=== PATIENT | male | born 2005 | race Caucasian/White ===

== ENCOUNTER 2025-08-19 13:46 | Emergency (ER) | payer OTHER, SELFPAY ==
[2025-08-19 13:58] VITALS: BP 137/77; PULSE 88; RESP 18; TEMP 38.7; O2SAT 96; BMI 25.1
[2025-08-19 14:00] VITALS: PULSE 68; RESP 14; O2SAT 99
--- NOTE | 2025-08-19 14:13 | CRLHL7_ITS ---
For Patients: As a result of the Century Cures Act, medical imaging exams and procedure reports are released immediately into your electronic medical record. You may view this report before your referring provider. If you have questions, please contact your health care provider. Indication: Sore throat. Technique: CT soft tissue neck with IV contrast was acquired from the skullbase to the thoracic inlet. No comparisons. Findings: Visualized posterior fossa structures are within normal limits. The thyroid, submandibular and parotid glands are within normal limits. The cervical airway is widely patent. Vallecula and piriform sinuses are within normal limits. Visualized pulmonary apices are grossly unremarkable. Enlarged bilateral level 1 and level 2 lymph nodes are likely reactive in nature. The palatine tonsils are diffusely enlarged. There is a vague 1 cm region of decreased attenuation within the anterior aspect of the left palatine tonsil that does not demonstrate a enhancing rind and may represent a developing phlegmon. No suspicious fluid collections. No convincing evidence of suspicious enhancing masses seen within the soft tissues of the neck. Impression: 1. Enlarged bilateral tonsils likely reactive in nature. Vague region of decreased attenuation along the anterior margin of the left tonsil may represent a developing phlegmon. 2. Enlarged bilateral level 1 and level 2 lymph nodes are likely reactive in nature. 3. No radiographic evidence of peripherally enhancing fluid collections. Please note that all CT scans at this facility use dose modulation, iterative reconstruction, and/or weight-based dosing when appropriate to reduce radiation dose to as low as reasonably achievable. Dictated by Eric Eaton MD @ 08/19/2025 2:48:15 PM (Electronically Signed)
--- NOTE | 2025-08-19 14:15 | ED.GENADULT ---
HPI - General Adult General Chief complaint: Sore Throat Stated complaint: swollen tonsils/ abscess Time Seen by Provider: 08/19/25 14:08 History of Present Illness HPI narrative: This 20-year-old male comes in reporting sore throat and fever that began yesterday. He went to urgent care and was sent here because the possibility of an abscess. He does have a muffled voice but does not have any trismus. He arrives here with a temperature at 101.7? F. the temperature measured at urgent care was about a degree higher than this. He states that he is otherwise in good health. Related Data Previous Rx's ?Medication ?Instructions ?Recorded amoxicillin 875 mg-potassium 1 tab PO BID #14 tabs 08/19/25 clavulanate 125 mg tablet ketorolac 10 mg tablet 10 mg PO TID 5 days #15 tabs 08/19/25 methylprednisolone 4 mg tablets in See Rx Instructions PO .COMPLEX 08/19/25 a dose pack (Medrol (Mundo)) #21 ea Allergies Allergy/AdvReac Type Severity Reaction Status Date / Time No Known Drug Allergies Allergy Verified 08/19/25 14:42 Review of Systems Status of ROS: Reports: 10 or more systems reviewed and unremarkable except as noted in History and below Narrative: Constitutional: No weight gain or loss. He reports a fever. Eyes: No discharge. No vision changes. HENT: No congestion, no ear pain. Sore throat as described above. Cardiovascular: No chest pain, no palpitations. Respiratory: No shortness of breath, no wheezes, no cough. Gastrointestinal: No abdominal pain, no vomiting, no diarrhea. Genitourinary: No dysuria, no hematuria. Musculoskeletal: Normal range of motion. Skin: No rashes, no pruritis. Neurological: No dizziness, weakness, sensory change, speech change. Endo/Heme/Allergies: No bruising or bleeding. No polydipsia. Pysch: no suicidality, no anxiety, no insomnia. All other systems reviewed and are negative. PFSH PFS Social History Smoking Status: Never smoker How often do you have a drink containing alcohol: never AUDIT-C Alcohol total score: 0 Non-prescribed substance use: denies use Exam Narrative: Exam Narrative: Constitutional: Well-developed, well-nourished, no acute distress. HEENT: Normocephalic, atraumatic. Oropharynx shows a large left tonsil which abuts up to the uvula. He has a muffled voice. No trismus. Neck: Normal range of motion. Nontender. Supple. Heart: Intact distal pulses. Lungs: No chest discomfort. No wheezes, rhonchi, or rales. Abdomen: Nontender. Back: Normal range of motion. Extremities: Normal range of motion. No injury. Skin: Intact. No rash. Warm. No erythema or pallor. Neurologic: No altered sensation. No weakness. Alert and oriented. Psychiatric: No suicidality. No anxiety or depression. No insomnia. Nursing notes and vitals signs are reviewed. Const: Vital Signs, click to edit/add: Vital Signs - 24 hr 08/19/25 13:58 Temperature 101.7 F H Pulse Rate [Pulse Oximeter] 88 Respiratory Rate 18 Blood Pressure [Ri ght Upper Arm] 137/77 Pulse Oximetry 96 Oxygen Delivery Me thod Room Air Course Vital Signs Vital signs: Initial Vital Signs Temperature 101.7 F H 08/19/25 13:58 Temperature Source Temporal Artery Scan 08/19/25 13:58 Pulse Rate 88 08/19/25 13:58 Pulse Rhythm Regular 08/19/25 13:58 Respiratory Rate 18 08/19/25 13:58 Blood Pressure 137/77 08/19/25 13:58 Blood Pressure Mean 97 08/19/25 13:58 Blood Pressure Position Sitting 08/19/25 13:58 Pulse Oximetry 96 08/19/25 13:58 Oxygen Delivery Method Room Air 08/19/25 13:58 Vital Signs Temperature 101.7 F H 08/19/25 13:58 Pulse Rate 88 08/19/25 13:58 Respiratory Rate 18 08/19/25 13:58 Blood Pressure 137/77 08/19/25 13:58 Pulse Oximetry 96 08/19/25 13:58 Oxygen Delivery Method Room Air 08/19/25 13:58 Temperature 101.7 F H 08/19/25 13:58 Pulse Rate 88 08/19/25 13:58 Respiratory Rate 18 08/19/25 13:58 Blood Pressure 137/77 08/19/25 13:58 Pulse Oximetry 96 08/19/25 13:58 Oxygen Delivery Method Room Air 08/19/25 13:58 Medical Decision Making MDM Narrative Medical decision making narrative: This patient comes in with sore throat, fever, and muffled voice. There is suspicion for a tonsillar abscess. An IV was established and labs are acquired. CT imaging with IV contrast is obtained of the soft tissue of the neck. This shows no evidence of abscess but certainly a reactive tonsil. Labs returned with elevated white count at 16,000. Other lab results are reassuring and normal including negative strep test, mononucleosis test, and viruses tested. The patient did receive an IV dose of Solu-Medrol and received prescriptions for Augmentin, Medrol Dosepak, and Toradol. I describe signs and symptoms that would indicate a need for return and re-evaluation. Lab Data Labs: Lab Results 08/19/25 08/19/25 Range/Units 14:04 14:23 WBC 16.05 H (4.50-11.00) K/uL RBC 4.84 (4.30-5.90) m/uL Hgb 14.4 (13.5-17.5) gm/dL Hct 42.1 (37.0-53.0) % MCV 87 (80-100) fL MCH 30 (26-34) pg MCHC 34 (32-36) gm/dL RDW Coeff of Valdemar 12.0 (11.5-15.5) % Plt Count 183 (140-440) K/uL Neut % (Auto) 71.7 (42.0-72.0) % Lymph % (Auto) 21.2 (20-44) % Coal % (Auto) 6.7 (0.0-11.0) % Eos % (Auto) 0.0 (0.0-7.0) % Baso % (Auto) 0.2 (0.0-3.0) % Neut # (Auto) 11.50 H (1.7-7.0) K/uL Lymph # (Auto) 3.40 H (0.90-2.90) K/uL Coal # (Auto) 1.10 H (0.00-0.90) K/UL Eos # (Auto) 0.00 (0.00-0.50) K/uL Baso # (Auto) 0.00 (0.00-0.30) K/uL Abs Immat Gran (auto) 0.00 (0.00-0.30) K/uL Imm/Tot Granulo (auto) 0.2 % SARS-CoV-2 (PCR) Negative SARS-CoV-2 (Negative) Monoscreen Negative (Negative) Influenza Type A (PCR) Negative PCR FLU A (Negative) Influenza Type B (PCR) Negative PCR FLU B (Negative) RSV (PCR) Negative PCR RSV (Negative) Group A Strep DNA NOT DETECTED (Not Detectd) Imaging Data CT Soft Tissue Neck: Radiologist's impression: 1. Enlarged bilateral tonsils likely reactive in nature. Vague region of decreased attenuation along the anterior margin of the left tonsil may represent a developing phlegmon. 2. Enlarged bilateral level 1 and level 2 lymph nodes are likely reactive in nature. 3. No radiographic evidence of peripherally enhancing fluid collections. Discharge Plan Discharge Clinical Impression: Acute tonsillitis Patient Disposition: Home, Self-Care Condition: Improved Additional Instructions: Take medications as prescribed. Follow up with MD as needed or return if not improving or worsening. Prescriptions: New ketorolac 10 mg tablet 10 mg PO TID 5 Days Qty: 15 0RF methylprednisolone [Medrol (Mundo)] 4 mg tablets,dose pack See Rx Instructions .ROUTE .COMPLEX Qty: 21 0RF Rx Instructions: orally per package directions amoxicillin-pot clavulanate 875-125 mg tablet 1 tab PO BID Qty: 14 0RF Follow Up/Referrals: Provider,Not a Local [Primary Care Provider, Family Practice] Stand Alone Forms: MyHealth Info Instructions
[2025-08-19 14:30] VITALS: O2SAT 97
[2025-08-19 14:33] LABS: Hematocrit* 42.1 % (37.0-53.0); Hemoglobin* 14.4 gm/dL (13.5-17.5); Immature Granulocytes Pct Auto 0.2 %; Lymphocytes Absolute Auto 3.40 K/uL (0.90-2.90); Mean Corpuscular HGB Conc 34 gm/dL (32-36); Mean Corpuscular Hemoglobin 30 pg (26-34); Mean Corpuscular Volume 87 fL (80-100); RDW Coefficient of Variation % 12.0 % (11.5-15.5); Red Blood Count* 4.84 m/uL (4.30-5.90); White Blood Count* 16.05 K/uL (4.50-11.00)
[2025-08-19 14:39] LABS: Strep A DNA Probe* NOT DETECTED (Not Detectd)
[2025-08-19 14:49] LABS: Immature Granulocytes Abs Auto 0.00 K/uL (0.00-0.30); Slide Review Reflex Yes
[2025-08-19 14:51] LABS: PCR FLU A Negative PCR FLU A (Negative); PCR FLU B Negative PCR FLU B (Negative); PCR RSV Negative PCR RSV (Negative); SARS PCR* Negative SARS-CoV-2 (Negative)
[2025-08-19 14:56] LABS: Mono Screen* Negative (Negative)
[2025-08-19 15:00] VITALS: PULSE 62; RESP 14; O2SAT 97
--- OUTSIDE RECORDS SUMMARY | 2025-08-19 15:04 | XMS_ITS | Clinical Summary ---
Author Organization [facility] Address [address] [place] [address] Care Team Providers Care Food Mixer Repairer Name Role Phone Lisa Mauro M.D., M.P.H. Primary Care Pro vider Source Comments Patient records contain information from all sites at [facility]. For routine questions regarding patient records, call [phone] during business hours, M-F 8:00 AM - 5:00 PM Central Time. Record requests for emergency care only can be directed to [phone] at any time.[facility] Allergies No known active allergies Medications acetaminophen (for_TYLENOL) 325 mg tablet Take 1-2 tablets by mouth. Pain 04/14/2017 Active ibuprofen (for_ADVIL,MOTR IN) 200 mg tablet Take 1 tablet by mouth every 6 (six) hours as needed. 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 No history of trauma. Discussed the importance of monitoring for changes, as alterations could indicate potential issues such as melanoma due to sun exposure. - Monitor for changes in the iris defect. Family History Cardiovascular Disease 03/22/2024 Concussion Loss Of Conscious ness Less Than 30 Minute Subsequent 07/28/2022 Overview (07/28/2022): 07/28/22: - first age 8, fully resolved - 07/26--hit during football game. LOC 2-3 sec, seen in ER, nausea/ mild FRANCO--improving. Sensitive to light and soundsbut that is improving Assessment & Plan (03/24/2025 2:07 PM CDT): Concussion Concussion with the last incident in July 2022 due to a head-on collision during football. No sequelae reported, including no persistent headaches, vision changes, or cognitive difficulties. Assessment & Plan (07/28/2022 8:24 AM CDT): ASSESSMENT/ PLAN: - improving, mild concussion - is going to follow with business trainer; will take 2 weeks off sports - discussed prevention. Helmet for all appropriate activities in future Examination Well Bridge Club Manager Multisystem 29 Day To 17 Year Normal 05/13/2018 Immunizations Immunization Administration Dates Next Due 9vHPV 2020,06/12/2017 DTaP (Daptacel) 07/01/2010 DTaP / Hib 10/07/2006 DTaP, Unspecified 2005,2005,09/01/20 05 HepA Pediatric/Adolescent 08/02/2007,07/21/2006 HepB Pediatric/Adolescent 2005,2005 Hib (PRP-T) (ACTHIB, HIBERIX) 2005 Hib-HepB 2005 IPV 07/01/2010, 6,2005,2004 Influenza, Seasonal, Injectable 08/02/2007,10/07,09/08/2006 MCV4 (Menactra)(Discontinued) 05/13/2018 MENACWY-TT (MENQUADFI)(MCV4) 07/28/2022 MMR 07/01/2010 MMRV 07/21/2006 PCV7 (discontinued) 10/07/2006, 6,2005,2004 SARS-COV-2 (COVID-19) - MODE RNA (12 YEARS AND OLDER) Fall Seasonal 09/17/2023 SARS-COV-2 (COVID-19) - PFIZ ER (Discontinued)(12 years or older) 03/19/2021,02/26/2021 Tdap 05/13/2018 JEFF 07/01/2010,07/21/2006 influenza LAIV (Nasal) (2 ye ars through 49 years) 08/26/2014 influenza trivalent LAIV (Na miguelina) (2 years through 49 years) 08/06/2011,07/10/2009,08/14/2008 influenza trivalent vaccine (6 months and older)(PF) 08/19/2012 influenza vaccine quad (FLUZONE/FLUARIX) (6 months and older)(PF) 09/17/2023,07/28/2022,08/06/2013 Family History Medical History Relation Name Comments Coronary artery disease Father tatyana saez Depression Father tatyana saez bipolar level 2 Anxiety disorder Mother everett saez Depression Mother everett saez Migraines Mother everett saez Sleep apnea Mother everett saez currently reciv ing treatment (CPAP) Coronary artery disease Paternal Grandfather vickie rouse gregor Diabetes Paternal Grandfather vickie saez Anxiety disorder Sister Ashley Relation Name Status Comments Father tatyana saez Mother everett saez Paternal Grandfather vickie saez Sister Ashley Alive Social History Tobacco Use Types Packs/Day Years Used Date Smoking Tobacco: Never Smokeless Tobacco: Never Alcohol Use Standard Drinks/Week Comments Not Currently 0 (1 standard drink = 0.6 oz pure alcohol) Have had a few drinks in the past in family settings [facility] Utilities Answer Date Recorded In the past 12 months has th e [employer], gas, oil, or water [employer] threatened to shut off services in your home? No 03/19/2024 Hunger Vital Sign Answer Date Recorded Within the past 12 months, y ou worried that your food would run out before you got the money to buy more. Never true 03/19/20 24 Within the past 12 months, t he food you bought just didn't last and you didn't have money to get more. Never true 03/19/2024 PRAPARE - Transportation Answer Date Re corded In the past 12 months, has l ack of transportation kept you from medical appointments or from getting medications? No 03/05 In the past 12 months, has l ack of transportation kept you from meetings, work, or from getting things needed for daily living? No 03/19/2024 Depression Answer Date Recor ded PHQ-9-M Total Score (5-9=Mil d, 10-14=Moderate, 15-19=Moderately Severe, 20-27=Severe) 0 04/14/2023 Safety and Environment Answer Date Tho rded Are there any guns kept in or around your home? No 07/28/2022 Gun Storage Not on file 07/28/2022 Child Education Answer Date Recorded Radar Scientist Education Not on file 2021 Are you/your child doing well enough in school? Yes 07/28/2022 Do you/your child have what you need to learn? (i.e. school supplies, access to internet, laptop at home, IEP) Yes Read to Child Not on file 07/28/2022 Adolescent Education Answer Date Record ed Are you/your child doing well enough in school? Yes 07/28/2022 Do you/your child have what you need to learn? (i.e. school supplies, access to internet, laptop at home, IEP) Yes Housing Stability Answer Date Recorded What is your living situation today? I have a 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 Gender Identity Male 03/11/2024 11:44 AM CDT Sexual Orientation Not on file Last Filed Vital Signs Vital Sign Reading Time Taken Comments Blood Pressure 126/79 03/24/2025 1:28 PM CDT Pulse 98 03/24/2025 1:28 PM CDT Temperature 36.8 C (98.2 F) 07/26/2022 10:49 AM CDT Respiratory Rate 16 07/26/2022 10:49 AM CDT Oxygen Saturation 100% 07/26/2022 10:49 AM CDT Inhaled Oxygen Concentration - - Weight 88 kg (194 lb 0.1 oz) 03/24/2025 1:28 PM CDT Height 185.4 cm (6' 0.99) 03/24/2025 1:28 PM CD T Body Mass Index 25.6 03/24/2025 1:28 PM CDT Plan of Treatment Health Maintenance Due Date Last Done Comments Hearing Screening during Well Child Visit 2005 Hepatitis C Screening 2005 1 week Well Child Check-Up 2005 1 month Well Child Check-Up 2005 2 month Well Child Check-Up 2005 4 month Well Child Check-Up 2005 9 month Well Child Check-Up 02/24/2006 15 month Well Child Check-Up 08/27/2006 18 month Well Child Check-Up 11/27/2006 2 year Well Child Check-Up 05/27/2007 30 month Well Child Check-Up 11/27/2007 3 year Well Child Check-Up 05/27/2008 5 year Well Child Check-Up 05/27/2010 6 year Well Child Check-Up 05/27/2011 7 year Well Child Check-Up 05/27/2012 8 year Well Child Check-Up 05/27/2013 10 year Well Child Check-Up 05/27/2015 13 year Well Child Check-Up 05/27/2018 14 year Well Child Check-Up 05/27/2019 16 year Well Child Check-Up 06/23/2021 Vision Screening during Well Child Visit 2024 2020, 09/07/2013 20 year Well Child Check-Up 05/27/2025 COVID-19 Vaccine (2024- season) 2025 09/17/2023, 03/19/2021, 02/26/2021 Influenza Vaccine (#1) 2025 , 07/28/2022, 08/26/2014, Additional history exists TB Screening during Well Child Visit 03/20/2026 03/20/2025 Lipid (Cholesterol) Screening 03/22/2027 03/22/2024 DTaP,Tdap,and Td Vaccines (7 - Td or Tdap) 05/13/2028 05/13/2018, 07/01/2010, 10/07/2006, Additional history exists Hepatitis B Vaccines Completed 2005, 2005, 2005 Pneumococcal vaccine (0-49 years) Aged Out 10/07/2006, 2005, 2005, Additional history exists No longer eligible based on patient's age to complete this topic IPV Vaccines Completed 07/01/2010, 06/2 12/2005, 2005, Additional history exists Varicella Vaccines Completed 07/01/2010, 1 , 07/21/2006 12 year Well Child Check-Up Completed 05/13/2018 15 year Well Child Check-Up Completed 2020 HPV Vaccines Completed 2020, 06/12/2017 17 year Well Child Check-Up Completed 07/28/2022 Meningococcal Vaccine Completed 07/28/2022, 018 18 year Well Child Check-Up Completed 03/22/2024 19 year Well Child Check-Up Completed 03/24/2025 Depression Screening (Annual PHQ-2) Completed 03/24/2025, 03/20/2025 Well Child Check-Up (WCC) Completed Well Child Check-Up Completed in Past Year Completed 03/24/2025 Procedures Procedure Name Priority Date/Time Associated Diagnosis Comments LIPID PANEL, S Routine 03/22/2024 1:28 PM CDT Family History Cardiovascular Disease from Last 3 Months or Most Recently Relevant to Health Maintenance Results * Lipid Panel (03/22/2024 1:28 PM CDT) Triglycerides 40 mg/dL 03/22/2024 2:35 PM CDT DTL Comment: ----REFERENCE VALUE---- Normal: <150 mg/dL Borderline High: 150-199 mg/dL High: 200-499 mg/dL Very High: > or =500 mg/dL Cholesterol, Total 132 mg/dL 2023 2:35 PM CDT DTL Comment: ----REFERENCE VALUE---- Desirable: < 200 mg/dL Borderline High: 200 - 239 mg/dL High: > or = 240 mg/dL Cholesterol, LDL, Calculated 77 mg/dL 03/22/2024 2:35 PM CDT DTL Comment: ----REFERENCE VALUE---- Desirable: <100 mg/dL Above Desirable: 100-129 mg/dL Borderline High: 130-159 mg/dL High: 160-189 mg/dL Very High: >=190 mg/dL ----ADDITIONAL INFORMATION---- LDL cholesterol calculated using the Kumar/NIH equation. Cholesterol, HDL, S 45 >=40 mg/dL 03/22/2024 2:35 PM CDT DTL Cholesterol, Non-HDL, Calculated 87 mg/dL 03/22/2024 2:35 PM CDT DTL Comment: ----REFERENCE VALUE---- Desirable: <130 mg/dL Above Desirable: 130-159 mg/dL Borderline High: 160-189 mg/dL High: 190-219 mg/dL Very High: > or =220 mg/dL Fasting (8 HR or more) No 03/22/2024 1:28 PM CDT DTL Blood (Blood, Venous) 03/22/2024 1:28 PM CDT 03/22/2024 2:09 PM CDT Kleber Thomas M.D., M.S. LAB BLOOD ADD-ON Fi nal Result [facility] [address] [place] [address], [facility] [address] [place] [address] from Last 3 Months or Most Recently Relevant to Health Maintenance Insurance [employer] Care Teams Food Mixer Repairer Relationship Specialty Start Date End Date Lisa Mauro M.D., M.P.H. [address] [place] [phone] PCP - General 05/08/23
--- OUTSIDE RECORDS SUMMARY | 2025-08-19 15:05 | XMS_ITS | Encounter Summary ---
Author Organization [facility] Address [address] [place] [address] Care Team Providers Care Criminal Defense Lawyer Name Role Phone Lisa Mauro M.D., M.P.H. Primary Care Pro vider Encounter Details Date Type Department Care Team (Late st Contact Info) Description 06/06/2011 Historical Ophthalmology RST OPH Hien Ann O.D. 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 - 06/06/2011 1:52 PM CDT Eye General CHIEF COMPLAINT General exam HISTORY OF PRESENT ILLNESS First eye exam. Patient's mother reports occassional complaints of blurred vision, no other concerns. IMPRESSION / REPORT / PLAN #1 Hyperopia no rx needed yet 1 year / prn DIAGNOSIS #1 Hyperopia CDM Reports - EYEGEN Id: [id number] Status: Fnl documented in this encounter Plan of Treatment Not on file documented as of this encounter Visit Diagnoses Not on filedocumented in this encounter Additional Health Concerns Infection Onset Date Last Indicated Resolved Time COVID19 Pending 03/24/2022 03/24/2022 03/24/2022 4 :35 PM CDT COVID19 03/24/2022 03/24/2022 04/13/2022 6:16 AM CDT documented as of this encounter Care Teams Criminal Defense Lawyer Relationship Specialty Start Date End Date Lisa Mauro M.D., M.P.H. [address] [place] [phone] PCP - General 05/08/23 documented as of this encounter
--- OUTSIDE RECORDS SUMMARY | 2025-08-19 15:05 | XMS_ITS | Encounter Summary ---
Author Organization [facility] Address [address] [place] [address] Care Team Providers Care Patient Admitting Representative Name Role Phone Lisa Mauro M.D., M.P.H. Primary Care Pro vider Encounter Details Date Type Department Care Team (Late st Contact Info) Description 09/07/2013 Historical Ophthalmology RST OPH Hien Ann O.D. 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 - 09/07/2013 2:17 PM CST Eye General CHIEF COMPLAINT blurred vision HISTORY OF PRESENT ILLNESS Blurred vision; both eyes; x several months; rarely. IMPRESSION / REPORT / PLAN #1 Hyperopia no rx needed yet 1 year / prn CDM Reports - EYEGEN Id: [id number] Status: Fnl documented in this encounter Plan of Treatment Not on file documented as of this encounter Visit Diagnoses Not on filedocumented in this encounter Additional Health Concerns Infection Onset Date Last Indicated Resolved Time COVID19 Pending 03/24/2022 03/24/2022 03/24/2022 4 :35 PM CDT COVID19 03/24/2022 03/24/2022 04/13/2022 6:16 AM CDT documented as of this encounter Care Teams Patient Admitting Representative Relationship Specialty Start Date End Date Lisa Mauro [place] [phone] PCP - General 05/08/23 documented as of this encounter
[2025-08-19] MEDS: METHYLPREDNISOLONE SOD SUCC 62.5 MG/ML (125) 125 MG IVP (15:07)
[2025-08-19 15:37] LABS: Slide Review Acceptable Review (Acceptable)
== END 2025-08-19 15:25 | disposition home or self-care (01) ==
PROVIDERS: Emergency Provider Emergency Medicine Emergency Medical Services
DX: J03.90 Acute tonsillitis, unspecified (principal); R50.9 Fever, unspecified
CPT/HCPCS: 36415; 70491; 85025; 86308; 87631; 87651; 94761; 96374; 99284; 99285; J2919; Q9967